=== PATIENT | male | born 1995 | race Caucasian/White ===

== ENCOUNTER 2018-07-01 19:09 | Emergency (ER) | payer OTHER ==
[2018-07-01] MEDS: ONDANSETRON 4 MG INJ IV (21:23)
[2018-07-01] MEDS: KETOROLAC 30 MG INJ IV (21:23)
[2018-07-01] MEDS: SOD CHLORIDE 0.9% 1,000 ML IV (21:23)
[2018-07-01] MEDS: DICYCLOMINE 20 MG INJ IM (21:25)
[2018-07-01] MEDS: ACETAMINOPHEN 325 MG TAB PO (21:25)
== END 2018-07-01 23:02 | disposition home or self-care (01) ==
LOC: FTE 23:02
DX: A08.4 Viral intestinal infection, unspecified (principal)
CPT/HCPCS: 96361; 96374; 96375; 99284-25